=== PATIENT | female | born 1990 | race Two or more races ===

== ENCOUNTER 2024-01-02 12:49 | Emergency (ER) | payer SELFPAY ==
[~2024-01-02] VITALS: Ht 160 cm; Wt 81.8 kg
[2024-01-02 13:12] VITALS: BP 161/90; RESP 16; O2SAT 96
[2024-01-02] MEDS ORDERED: SODIUM CHLORIDE 0.9% 1,000 ML IV ONE ×2 (13:30)
[2024-01-02 13:58] LABS: Acetaminophen < 2.0 UG/ML (10.0-20.0)
[2024-01-02 14:02] LABS: Salicylate < 3.0 mg/dL (2.8-20.0)
[2024-01-02 15:11] LABS: Alanine Aminotransferase 29 U/L (7-40); Albumin 4.3 g/dL (3.2-4.8); Alkaline Phosphatase 104 U/L (46-116); Anion Gap 11 (5-15); Aspartate Aminotransferase 17 U/L (13-40); BUN/Creatinine Ratio 10.1 (10.0-20.0); Bilirubin, Total 0.3 mg/dL (0.2-1.0); Blood Urea Nitrogen 7 mg/dL (9-23); Calcium 9.5 mg/dL (8.7-10.4); Carbon Dioxide 23 mmol/L (20-30); Chloride 106 mmol/L (98-107); Glucose 95 mg/dL (74-106); Potassium 4.1 mmol/L (3.5-5.1); Sodium 140 mmol/L (136-145); Total Protein 7.3 g/dL (5.7-8.2)
[2024-01-02 16:59] LABS: Urine Bacteria FEW /hpf (None Seen); Urine Blood Negative /uL (Negative); Urine Clarity Clear (Clear); Urine Protein, UAD Negative (Negative); Urine Specific Gravity 1.005 (1.001-1.035); Urine Urobilinogen Normal (Negative); Urine WBC 1 /hpf (0 - 5); Urine pH 6.5 (5.0-9.0)
[2024-01-02 17:03] LABS: Urine Color STRAW (Yellow)
[2024-01-02 17:04] VITALS: PULSE 87
[2024-01-02 17:15] LABS: Amphetamine Screen, Urine Neg (NEGATIVE)
[2024-01-02 17:16] LABS: Barbiturate Scree,Urine Neg (NEGATIVE); Benzodiazephine Screen, Urine Neg (NEGATIVE); Cannabinoid Screen, Urine Neg (NEGATIVE); Cocaine Screen, Urine Neg (NEGATIVE); Opiate Scree,Urine Neg (NEGATIVE); Phencyclidine Screen, Urine Neg (NEGATIVE)
== END 2024-01-02 21:08 | disposition left against medical advice (07) ==
LOC: ER 12:49
DX: T43.592A Poisoning by other antipsychotics and neuroleptics, intentional self-harm, initial encounter (principal); F32.9 Major depressive disorder, single episode, unspecified; Y92.89 Other specified places as the place of occurrence of the external cause
CPT/HCPCS: 36415; 80053; 80307; 80320; 80329; 81001; 93005